=== PATIENT | female | born 1980 | race Two or more races ===

== ENCOUNTER 2016-07-18 06:48 | Day surgery (SDC) | payer MEDICARE, MEDICAID ==
[~2016-07-18 06:48] MED LIST: ALBUTEROL INH 0.3 ML AERO NEB; ALBUTEROL0.83 MG/ML INH; ALBUTEROL17 GM; ALBUTEROL2.5 MG/3 M INH; ALLERGY RELIEF10 M4 PO; AUGMENTIN 875-11 TAB PO; BACTRIM DS TAB1 EAC2 PO; BACTRIM DS TABL1 TAB PO; CIPRO500 M2 PO; CIPRO500 MG PO; CIPROFLOXACIN750 M1 PO; CORTISPORIN OTI10 ML RIGHT EAR; CYCLOBENZAPRINE10 M1 PO; DICLOFENAC POTA50 M1 PO; FLOVENT HFA12 GM IH; FLOXIN10 ML OT; GEODON60 MG PO; IBUPROFEN800 M1 PO; IBUPROFEN800 MG PO; LEVAQUIN500 MG PO; LEXAPRO10 M1 PO; LEXAPRO20 M2 PO; LEXAPRO20 MG PO; MOTRIN600 MG PO; NEXIUM40 MG PO; NORCO 5-325 TA1 EACH PO; NORCO 5/325 TAB1 TAB PO; PHENTERMINE H37.5 M1 PO; PREDNISONE10 MG PO; PREDNISONE20 MG PO; ROBITUSSIN-DM120 ML PO; SEPTRA DS TABLE1 TAB PO; SKELAXIN800 M1 PO; SYMBICORT 160-4.6 GM IH; TOPAMAX25 MG; TOPAMAX50 M3 PO; TOPAMAX50 MG; TOPAMAX50 MG PO; VICODIN 5/500 T1 TAB PO; ZITHROMAX250MG Z-PAK PO
[2016-07-18 07:55] LABS: BASO % 0.2 % (0-2); EOS % 2.9 % (0-7); HCT-HEMATOCRIT 40.1 % (34.0-49.0); HGB-HEMOGLOBIN 13.4 gm/dl (12.0-15.5); IMMATURE GRANULOCYTES ABSOLUTE 0.07 tho/cmm (0-0.03); IMMATURE GRANULOCYTES PERCENT 0.5 % (0-0.3); LYMPH % 43.4 % (20-45); MCH (MEAN CORPUSCULAR HGB) 30.3 pg (28.0-32.0); MCHC MEAN CORPUSCULAR HGB CONC 33.4 % (32.0-36.0); MCV (MEAN CELL VOLUME) 90.7 fl (82.0-96.0); MEAN PLATELET VOLUME 9.4 cmc (9.4-12.4); MONO % 8.5 % (0-12); NEUTROPHIL ABSOLUTE COUNT 5.7 tho/cmm (1.6-8.0); NEUTROPHIL-AUTOMATED 5.7 tho/cmm (1.6-8.0); NEUTROPHILS % 44.5 % (40-80); PLATELET COUNT 338 tho/cmm (150-450); RED BLOOD COUNT 4.42 mil/cmm (4.00-5.20); RED CELL DISTRIBUTION WIDTH 13.5 % (12.4-16.4); WHITE BLOOD COUNT 12.9 tho/cmm (4.0-10.0)
[2016-07-18 07:57] LABS: EOSINOPHIL ABSOLUTE COUNT 0.4 tho/cmm (0.0-0.7); LYMPH ABSOLUTE COUNT 5.6 tho/cmm (0.8-4.5); MONOCYTE ABSOLUTE COUNT 1.1 tho/cmm (0.0-1.2)
[2016-12-18] MEDS ORDERED: NO HOME MEDICATION XX (09:48)
[2016-12-18] MEDS ORDERED: NORCO 5-325 TA1 EACH PO (10:56)
== END 2016-07-18 13:35 ==
LOC: SRG 06:48 → SHSC 06:50 → ORW 08:45 → PACU 10:00 → SHSC 10:49
PROVIDERS: Anesthesiology
PROC: 0FT44ZZ Resection of Gallbladder, Percutaneous Endoscopic Approach (ICD-10-PCS; principal; 2016-07-18)
DX: K80.10 Calculus of gallbladder with chronic cholecystitis without obstruction (principal); E66.01 Morbid (severe) obesity due to excess calories; G40.909 Epilepsy, unspecified, not intractable, without status epilepticus; M17.0 Bilateral primary osteoarthritis of knee; M47.819 Spondylosis without myelopathy or radiculopathy, site unspecified; F41.9 Anxiety disorder, unspecified; J42 Unspecified chronic bronchitis; G47.30 Sleep apnea, unspecified; K21.9 Gastro-esophageal reflux disease without esophagitis; F17.290 Nicotine dependence, other tobacco product, uncomplicated; Z79.899 Other long term (current) drug therapy; Z91.010 Allergy to peanuts; Z91.018 Allergy to other foods; Z87.442 Personal history of urinary calculi; Z90.89 Acquired absence of other organs; Z98.890 Other specified postprocedural states
CPT/HCPCS: J0690; J1170; J1885; J7030

== ENCOUNTER 2016-07-30 20:17 | Observation (INO) | payer MEDICARE, MEDICAID ==
[2016-07-30] MEDS ORDERED: CYCLOBENZAPRINE10 M1 PO (21:14)
[2016-07-30 22:25] LABS: BASO % 0.3 % (0-2); EOSINOPHIL ABSOLUTE COUNT 0.6 tho/cmm (0.0-0.7); HCT-HEMATOCRIT 42.5 % (34.0-49.0); HGB-HEMOGLOBIN 13.9 gm/dl (12.0-15.5); LYMPH % 26.8 % (20-45); LYMPH ABSOLUTE COUNT 4.2 tho/cmm (0.8-4.5); MCH (MEAN CORPUSCULAR HGB) 29.6 pg (28.0-32.0); MCHC MEAN CORPUSCULAR HGB CONC 32.7 % (32.0-36.0); MCV (MEAN CELL VOLUME) 90.4 fl (82.0-96.0); MEAN PLATELET VOLUME 9.6 cmc (9.4-12.4); MONOCYTE ABSOLUTE COUNT 1.9 tho/cmm (0.0-1.2); NEUTROPHILS % 56.9 % (40-80); PLATELET COUNT 367 tho/cmm (150-450); RED CELL DISTRIBUTION WIDTH 13.1 % (12.4-16.4); WHITE BLOOD COUNT 15.8 tho/cmm (4.0-10.0)
[2016-07-30 22:45] LABS: ALB/GLOB RATIO 0.7 (0.8-2.0); ALBUMIN 3.3 g/dl (3.5-5.0); ALKALINE PHOSPHATASE 110 U/L (33-138); ALT/SGPT 28 U/L (12-78); ANION GAP 14 mmol/L (0-20); AST/SGOT 18 U/L (10-40); BILIRUBIN,TOTAL 0.2 mg/dl (0-1.5); BLOOD UREA NITROGEN 21 mg/dl (6-24); CALCIUM 8.7 mg/dl (8.5-10.5); CARBON DIOXIDE-VENOUS 23 mmol/L (22-32); CHLORIDE 109 mmol/l (96-110); CREATININE 0.72 mg/dl (0.50-1.10); GLUCOSE 84 mg/dL (70-110); LIPASE 146 U/L (73-393); POTASSIUM 3.9 mmol/L (3.7-5.1); SODIUM 142 mmol/L (135-145); eGFR VALUE FOR BLACK >90 mL/Min
[2016-07-30 22:52] LABS: PREGNANCY-SERUM NEGATIVE (NEGATIVE)
[2016-07-31 00:46] LABS: URINE APPEARANCE CLEAR; URINE BILIRUBIN NEGATIVE (NEG); URINE BLOOD NEGATIVE (NEG); URINE COLOR YELLOW; URINE GLUCOSE (UA) NEGATIVE (NEG); URINE KETONE NEGATIVE (NEG); URINE LEUKOCYTE ESTERASE NEGATIVE (NEG); URINE NITRITE NEGATIVE (NEG); URINE PROTEIN SMALL (NEG); URINE SPECIFIC GRAVITY 1.025 (1.003-1.030)
[2016-07-31 00:54] LABS: URINE AMORPHOUS 1+; URINE BACTERIA 1+; URINE MUCUS 2+; URINE RBC 0 /[HPF] (0-5); URINE WBC 0-1 /[HPF] (0-5)
[2016-07-31] MEDS ORDERED: NEXIUM20 M1 PO (16:08)
[2016-07-31] MEDS ORDERED: PROZAC20 M3 PO (16:08)
[2016-12-18] MEDS ORDERED: NO HOME MEDICATION XX (09:48)
[2016-12-18] MEDS ORDERED: NORCO 5-325 TA1 EACH PO (10:56)
== END 2016-07-31 23:55 ==
LOC: EDMED 20:17 → EMR2 07-31 03:01 → 5WE 07-31 03:45
PROVIDERS: Emergency Medicine; ADMIT Surgery
DX: G89.18 Other acute postprocedural pain (principal); R10.11 Right upper quadrant pain; Z90.49 Acquired absence of other specified parts of digestive tract; Z79.899 Other long term (current) drug therapy
CPT/HCPCS: A9537; G0378; J1170; J2405; J7030; Q9967